=== PATIENT | male | born 1960 | race Caucasian/White ===

== ENCOUNTER 2018-02-05 18:43 | Inpatient (IN) | payer OTHER ==
[~2018-02-05] VITALS: Ht 177.8 cm; Wt 100.7 kg
--- NOTE | ~2018-02-05 | EKG ---
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 02/06/18 1303 1848 1848 Diomedes Deutsch MD, [facility] /EPI
[2018-02-05 18:49] VITALS: BP 182/89
[2018-02-05] MEDS ORDERED: ELIQUIS2.5 MG PO (19:00)
[2018-02-05 19:01] LABS: ABSOLUTE NEUTROPHILS 4.8 thou/uL (1.4-8.2); BASOPHILS 0.9 % (0.0-2.0); EOSINOPHILS 1.4 % (0.0-3.0); HEMATOCRIT 42.7 % (42.0-52.0); HEMOGLOBIN 14.7 gm/dL (14.0-18.0); LYMPHOCYTES 33.9 % (24.0-44.0); MCH 32.2 pg (26.0-34.0); MCHC 34.5 g/dL (28.0-37.0); MCV 93.5 fL (80.0-100.0); MONOCYTES 7.2 % (1.0-8.0); PLATELET COUNT 202 thou/uL (150-400); POLYS 56.6 % (36.0-66.0); RBC 4.57 mil/uL (4.50-6.00); RDW 14.8 % (10.5-14.5); WBC 8.4 thou/uL (4.0-11.0)
[2018-02-05 19:09] LABS: CREATININE 0.8 mg/dL (0.7-1.3); POTASSIUM 3.7 mmol/L (3.5-5.1)
[2018-02-05 19:18] LABS: TOTAL BILIRUBIN 0.3 mg/dL (<0.1-1.0); TOTAL PROTEIN 6.5 g/dL (6.4-8.2); TROPONIN-I 0.06 ng/mL (<0.06)
[2018-02-05 22:00] VITALS: BP 145/86
[2018-02-05 22:13] VITALS: BP 147/100
[2018-02-06 04:23] VITALS: BP 148/98
[2018-02-06 08:44] VITALS: BP 134/86
[2018-02-06 08:51] LABS: CHOLESTEROL 241 mg/dL (<200); HDL CHOLESTEROL 33 mg/dL (>40); LDL CHOLESTEROL 158 mg/dL (<100); TC:HDL 7.3 Ratio (Not establshd); TRIGLYCERIDE 250 mg/dL (<150); VLDL 50 mg/dL (<40)
[2018-02-06 08:52] LABS: SERUM ASSESSMENT Clear
[2018-02-06 13:08] VITALS: BP 130/87
[2018-02-06 14:19] LABS: CALCIUM 8.9 mg/dL (8.5-10.1); CREATININE 0.9 mg/dL (0.7-1.3); MAGNESIUM 1.3 mg/dL (1.8-2.4)
[2018-02-06 16:28] VITALS: BP 144/93
[2018-02-06 17:06] LABS: GLYCOHEMOGLOBIN (HGB A1C) 6.2 % (4.8-5.6)
[2018-02-06 19:55] VITALS: BP 128/73
== END 2018-02-06 20:40 | disposition left against medical advice (07) | DRG 280 ==
LOC: ER 18:43 → EROBS 20:28 → 2N 20:28
PROVIDERS: Internal Medicine; Nurse Practitioner Acute Care; Nurse Practitioner Family
DX: I21.4 Non-ST elevation (NSTEMI) myocardial infarction (principal); I50.23 Acute on chronic systolic (congestive) heart failure; I11.0 Hypertensive heart disease with heart failure; I25.5 Ischemic cardiomyopathy; E78.00 Pure hypercholesterolemia, unspecified; I25.10 Atherosclerotic heart disease of native coronary artery without angina pectoris; I25.2 Old myocardial infarction; Z86.711 Personal history of pulmonary embolism; Z87.81 Personal history of (healed) traumatic fracture; Z79.01 Long term (current) use of anticoagulants; Z86.718 Personal history of other venous thrombosis and embolism; Z95.5 Presence of coronary angioplasty implant and graft; Z95.810 Presence of automatic (implantable) cardiac defibrillator; Z80.0 Family history of malignant neoplasm of digestive organs; Z82.49 Family history of ischemic heart disease and other diseases of the circulatory system
CPT/HCPCS: 10081